=== PATIENT | female | born 1930 | race Caucasian/White ===

== ENCOUNTER → 2017-07-04 | Outpatient (CLI) | payer MEDICARE, OTHER ==
--- NOTE | 2017-07-04 10:32 | MM ---
Reason for exam: additional evaluation requested from prior study. Last mammogram was performed 1 year ago. History: Patient has history of breast cancer at age 84. Malignant US breast localization RT of the right breast, March 16, 2015. Malignant US biopsy breast VAD RT of the right breast, February 01, 2015. Physical Findings: Nurse did not find any significant physical abnormalities on exam. MG 3D Diag Mammo W/Cad ALFRED Bilateral CC and MLO view(s) were taken. Prior study comparison: July 03, 2016, bilateral MG 3d diag mammo w/cad ALFRED. June 30, 2015, right breast MG 3d diag mammo w/cad RT. The breast tissue is heterogeneously dense. This may lower the sensitivity of mammography. No suspicious abnormality. Post biopsy change bilaterally. No significant new findings when compared with previous films. These results were verbally communicated with the patient and result sheet given to the patient on 07/04/17. ASSESSMENT: Benign, BI-RAD 2 RECOMMENDATION: Routine screening mammogram of both breasts in 1 year.
== END | disposition home or self-care (01) ==
LOC: RADMAMWWP 08:20
PROVIDERS: ATTEND Family Medicine
DX: Z08 Encounter for follow-up examination after completed treatment for malignant neoplasm (principal); Z85.3 Personal history of malignant neoplasm of breast
CPT/HCPCS: G0204; G0279

== ENCOUNTER 2018-03-13 02:08 | Emergency (ER) | payer MEDICARE, OTHER | END 2018-03-13 03:32 | disposition home or self-care (01) | LOC: EC 02:08 | DX: S01.112A Laceration without foreign body of left eyelid and periocular area, initial encounter (principal); W22.8XXA Striking against or struck by other objects, initial encounter; Y93.E1 Activity, personal bathing and showering; Y92.121 Bathroom in nursing home as the place of occurrence of the external cause | CPT/HCPCS: 12011; 99283 ==

== ENCOUNTER → 2018-08-15 | Outpatient (CLI) | payer MEDICARE, OTHER ==
--- NOTE | 2018-08-16 11:12 | BD ---
EXAMINATION TYPE: Axial Bone Density DATE OF EXAM: 08/15/2018 COMPARISON: NONE CLINICAL HISTORY: Postmenopausal female. Osteoporosis screening. Height: 5 FT 6 1/2 IN Weight: 206 FRAX RISK QUESTIONS: RISK FACTORS HISTORY OF: Postmenopausal woman: PART MONI AGE 30 Poor Health: YES MEDICATIONS: Additional Medications: PT UNSURE OF MEDS, BROUGHT NO LIST Additional History: PT 87 YEARS OLD FROM [facility] . SON BROUGHT HER SHE IS A POOR HISTORIAN EXAM MEASUREMENTS: Bone mineral densitometry was performed using the [employer] System. Bone mineral density as measured about the Lumbar spine is: ----- L1-L4(G/cm2): 1.237 T Score Values are as follows: ----- L2: 1.7 ----- L3: 0.1 ----- L4: -0.7 ----- L1-L4: 0.5 NO PREV Bone mineral density about the R hip (g/cm2): 0.637 Bone mineral density about the L hip (g/cm2): 0.708 T Score values are as follows: -----R Neck: -2.9 -----L Neck: -2.4 -----R Total: -2.4 -----L Total: -2.3 NO PREV IMPRESSION: Osteoporosis (T Score less than -2.5) with regards to the right femoral neck. There is increased fracture risk and therapy is usually indicated based on age. Re-Screen 1-2 years. NOTE: T-SCORE=SD OF THE YOUNG ADULT MEAN.
== END | disposition home or self-care (01) ==
LOC: RADBDWWP 14:29
PROVIDERS: ATTEND Internal Medicine Hematology & Oncology
DX: D05.11 Intraductal carcinoma in situ of right breast (principal); N95.1 Menopausal and female climacteric states; M81.0 Age-related osteoporosis without current pathological fracture; Z79.890 Hormone replacement therapy
CPT/HCPCS: 77080